=== PATIENT | female | born 1930 | race Caucasian/White ===

== ENCOUNTER → 2016-06-19 | Outpatient (CLI) | payer MEDICARE, OTHER ==
--- NOTE | 2016-06-19 13:54 | MRI ---
EXAM DESCRIPTION: Noncontrast MRI of the right shoulder CLINICAL HISTORY: Right shoulder pain with limited range of motion COMPARISON: None TECHNIQUE: Multiplanar, multi sequence MRI images of the right shoulder were obtained without intra-articular contrast. FINDINGS: Mild tendinosis of the supraspinatus more so than infraspinatus without high-grade partial or full-thickness tear. There is fluid seen within the subdeltoid/subacromial bursa which may represent bursitis. No full-thickness rotator cuff tear however. Otherwise, the rotator cuff is intact. Rotator cuff musculature demonstrates normal muscle bulk and signal characteristics. Long head of the biceps is well situated within the intertubercular groove. Biceps labral anchor is intact. Diffuse degeneration and blunting of the posterior and superior labrum. Moderate degenerative changes of the acromioclavicular joint. No fluid seen within the subdeltoid/subacromial bursa. Type 2 acromion is noted. Glenohumeral joint cartilage is intact. No large joint effusion or loose body. Marrow signal is otherwise unremarkable without fracture or subluxation. IMPRESSION: 1. Mild tendinosis of the supraspinatus and infraspinatus tendons without high-grade partial or full-thickness tear. There is fluid however within the subdeltoid/subacromial bursa which may represent bursitis. 2. Diffuse posterior and superior labral degeneration without labral cyst formation. 3. Moderate AC joint osteoarthrosis. Electronically signed by: Bret Davis MD 06/19/2016 1:52 PM CDT
== END | disposition home or self-care (01) ==
LOC: MRI 12:50
PROVIDERS: ATTEND Chiropractor Rehabilitation
DX: S43.429A Sprain of unspecified rotator cuff capsule, initial encounter (principal)

== ENCOUNTER → 2016-07-16 | Outpatient (CLI) | payer MEDICARE, OTHER ==
--- NOTE | 2016-07-16 08:43 | RAD ---
EXAM DESCRIPTION: Shoulder,Right 2 or More Views CLINICAL HISTORY: 86 years Female, PAIN IMPRESSION: 4 views of the right shoulder reveal considerable degenerative change of the acromioclavicular joint with inferiorly projecting osteophytes. The glenohumeral joint is unremarkable no evidence of dislocation or degenerative change. No fracture noted on today's study. Electronically signed by: Shay Jj MD 07/16/2016 8:42 AM CDT
== END | disposition home or self-care (01) ==
LOC: RAD 07:59
PROVIDERS: ATTEND Orthopaedic Surgery
DX: M25.511 Pain in right shoulder (principal)

== ENCOUNTER → 2016-08-27 | Outpatient (CLI) | payer MEDICARE, OTHER | END | disposition home or self-care (01) | LOC: GMAH 10:22 | PROVIDERS: ATTEND Family Medicine | DX: E78.4 Other hyperlipidemia (principal); E03.9 Hypothyroidism, unspecified ==

== ENCOUNTER → 2016-10-15 | Outpatient (CLI) | payer MEDICARE, OTHER | END | disposition home or self-care (01) | LOC: GMAH 11:45 | PROVIDERS: ATTEND Family Medicine | DX: E03.9 Hypothyroidism, unspecified (principal) ==

== ENCOUNTER → 2017-07-10 | Outpatient (CLI) | payer OTHER | END | disposition home or self-care (01) | LOC: GMAH 10:26 | PROVIDERS: ATTEND Family Medicine | DX: I10 Essential (primary) hypertension (principal) ==

== ENCOUNTER → 2017-09-03 | Outpatient (CLI) | payer OTHER | LOC: GMAH 11:26 | PROVIDERS: ATTEND Family Medicine | DX: E03.9 Hypothyroidism, unspecified (principal); E78.4 Other hyperlipidemia ==

== ENCOUNTER 2018-06-07 20:14 | Emergency (ER) | payer OTHER ==
--- NOTE | 2018-06-07 20:26 | ED.PDOC ---
History of Present Illness - General Chief Complaint: Head Injury Time Seen by Provider: 06/07/18 20:20 Source: patient - History of Present Illness Initial Comments: SHE FELL ON THE STREET AND NOW SUSTAINS A LAC TO THE RIGHT SUPRAORBITAL REGION. DENIES ANY LOC BUT SHE HAS AF AND ON ELIQUIS. SHE IS BROUGHT BY EMS AND HAD A RIGIID [place]. Occurred: just prior to arrival Injuries/Pain Location: head, face Reason for Fall: tripped - ON THE CURB Loss of Consciousness: no loss of consciousness Improving Factors: nothing Worsening Factors: nothing Associated Symptoms (Fall): denies symptoms Allergies/Adverse Reactions: Allergies Codeine Allergy (Verified 06/07/18 20:37) Penicillins Allergy (Verified 06/07/18 20:35) Review of Systems - Review of Systems Constitutional: States: no symptoms reported EENTM: States: no symptoms reported Respiratory: States: no symptoms reported Cardiology: States: no symptoms reported Gastrointestinal/Abdominal: States: no symptoms reported Genitourinary: States: no symptoms reported Musculoskeletal: States: no symptoms reported Skin: States: other - LACERATION TO THE RIGHT SUPRAORBITAL REGION Neurological: States: no symptoms reported Endocrine: States: no symptoms reported Hematologic/Lymphatic: States: no symptoms reported Past Medical History (General) - Patient Medical History Hx Cardiac Disorders: Yes Hx Diabetes: Yes Physical Exam - Physical Exam General Appearance: Alert, Well Developed, Well Groomed, Well Hydrated, Well Nourished Head Injury: ecchymosis, swelling, other - RIGHT SUPRAORBITAL AREA Eye Exam: bilateral normal, bilateral abnormal EOM ENT Exam: hearing grossly normal, no evidence of ENT injury, no dental injury Peripheral Pulses: radial,right: 2+, radial,left: 2+ Cardiovascular/Respiratory: irregularly irregular Gastrointestinal/Abdominal: normal bowel sounds, non tender, soft, no organomegaly Extremity Exam: no evidence of injury, normal range of motion, non-tender Skin Exam: normal color Progress - Progress Progress: 06/07/18 22:59 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 BP MAINTAINS GOOD. CT CERVICAL SPINE: NO ACAUTE PROCESS CT HEAD: NO ACAUTE BRAIN INJURY. FRACTURE OF THE FLOOR OF THE RIGHT ORBIT. BLOOD IN THE RIGHT MAXILLAR SINUS RIGHT SHOULDER: IMPACTED FRACTURE OF THE HUMERAL NECK-CLOSED \ - Results/Orders Results/Orders: CASE DISCUSSED WITH DR. LUND: WILL TRANSFER TO [place]- ACCEPTS THE CASE Procedures - Laceration/Wound Repair Right Face Wound Length (cm): 8 Wound's Depth, Shape: into muscle, irregular Wound Explored: no foreign body removed Irrigated w/ Saline (cc's): 100 Betadine Prep?: Yes Anesthesia: Lidocaine w/ Epi Volume Anesthetic (cc's): 10 Wound Repaired With: sutures Suture Size/Type: 5:0, nylon Number of Sutures: 7 Layer Closure?: Yes Deep Layer Suture Size/Type: 4:0, vicryl Sterile Dressing Applied?: Yes Splint Applied?: No Departure - Departure Clinical Impression: Bradycardia Closed head injury Qualifiers: Encounter type: initial encounter Qualified Code(s): S09.90XA - Unspecified injury of head, initial encounter Facial laceration Qualifiers: Encounter type: initial encounter Qualified Code(s): S01.81XA - Laceration without foreign body of other part of head, initial encounter Fracture of orbital floor Qualifiers: Encounter type: initial encounter Fracture type: closed Laterality: right Qualified Code(s): S02.31XA - Fracture of orbital floor, right side, initial encounter for closed fracture Humerus surgical neck fracture Qualifiers: Encounter type: initial encounter Fracture type: closed Fracture morphology: unspecified fracture morphology Fracture alignment: nondisplaced Laterality: right Qualified Code(s): S42.214A - Unspecified nondisplaced fracture of surgical neck of right humerus, initial encounter for closed fracture Time of Disposition: 23:07 Disposition: Transfer to Hospital Condition: Good Referrals: Louis Elliott MD [Primary Care Provider] - 1-2 Weeks Transfer to Outside Facility - Transfer Information Accepting Provider:: ROZINA LUND MD Accepting Facility: [facility] Reason for Transfer: required specialist not available
[2018-06-07] MEDS ORDERED: ONDANSETRON INJ 4 MG/2 ML VIAL IV ONE (21:24)
[2018-06-07] MEDS ORDERED: CHLORHEXIDINE GLUCONATE 4 % 15 ML UD TOP ONE (21:43)
[2018-06-07] MEDS ORDERED: LIDOCAINE 1% 50 ML VIAL INJ ONE (21:43)
[2018-06-07] MEDS ORDERED: LIDOCAINE 1% 2 ML VIAL INJ ONE (21:43)
[2018-06-07] MEDS ORDERED: LIDOCAINE 1% W/ EPINEPHRINE 20 ML VIAL INJ ONE (21:49)
--- NOTE | 2018-06-07 21:55 | CT ---
EXAM: Head CLINICAL INDICATION: 87-year-old female with head injury on Eliquis. COMPARISON: None. TECHNIQUE: CT brain without contrast. This exam was performed according to our departmental dose optimization program which includes use of automated exposure control, adjustment of the mA and/or kV according to patient size and/or use of iterative reconstruction technique. FINDINGS: Large RIGHT frontal subcutaneous hematoma. Evaluation through the skull base is limited for subtle hemorrhage secondary to motion streak artifact. Multifocal regions of patchy hypoattenuation are present in a subcortical and periventricular deep white matter distribution, nonspecific; however, most likely represent small vessel ischemic disease, age indeterminate. The ventricles, and sulci are enlarged compatible with underlying volume loss. The smith-white matter differentiation is preserved. There is no mass effect, midline shift, intra- or extra-axial fluid collection/acute hemorrhage. The osseous structures are unremarkable. The paranasal sinuses reveal mucosal thickening and air-fluid level within the maxillary sinuses bilaterally RIGHT greater than LEFT otherwise the remaining paranasal sinuses and mastoid air cells are clear. Air-fluid level within the RIGHT maxillary sinus reveals high density contents compatible with hemorrhage. Small depressed fracture of the medial aspect of the RIGHT orbital floor noted with approximately 3 mm of bony depression into the maxillary sinus cavity. There is no associated herniation of the retro-orbital fat or tethering of the rectus musculature. IMPRESSION: 1. No acute intracranial abnormalities. 2. Small medial RIGHT orbital floor fracture as detailed above. 3. Nonspecific white matter change most likely small vessel ischemic disease, age indeterminate. CT is insensitive for early evaluation of acute stroke. If there is clinical concern for acute ischemia, an MRI may be considered. 3. Large RIGHT frontal subcutaneous hematoma. Electronically signed by: Luly Ribeiro MD 06/07/2018 9:52 PM [facility]
--- NOTE | 2018-06-07 21:55 | RAD ---
EXAM DESCRIPTION: Shoulder,Right 2 or More Views CLINICAL HISTORY: 87 years Female, fall, pain COMPARISON: Right shoulder radiographs July 16, 2016. FINDINGS: There is an acute, comminuted fracture of the right humeral head/neck with mild displacement. No dislocation. Degenerative changes of the right acromioclavicular joint noted. Visualized right lung is clear. Surrounding soft tissues are grossly unremarkable. IMPRESSION: Acute fracture of the right humeral head/neck. Electronically signed by: Reji Smart MD 06/07/2018 9:52 PM [facility]
--- NOTE | 2018-06-07 22:01 | CT ---
EXAM: Cervical Spine CLINICAL INDICATION: 87-year-old female status post head injury. On Eliquis. TECHNIQUE: Cervical spine CT was performed without contrast. Multiplanar reformatted images were provided. This exam was performed according to our departmental dose optimization program which includes use of automated exposure control, adjustment of the mA and/or kV according to patient size and/or use of iterative reconstruction technique. COMPARISON: None. FINDINGS: There is normal alignment of the cervical spine without fracture or subluxation. The facets are normal in alignment bilaterally. The posterior elements including the spinous processes are intact. Straightening of the cervical spine which may be secondary to positioning for the examination. Morphology and attenuation of the vertebral bodies and intervertebral disc spaces is compatible with multilevel degenerative change. Loss of disk height present at the C5-6 and C6-7 vertebral levels. Posterior osseous spurring at C5-6 and C6-7 resulting in moderate to severe bilateral neuroforaminal narrowing. The pre-and paravertebral soft tissues are within normal limits. The airway is patent. Extraspinal imaging is within normal limits. IMPRESSION: 1. Straightening of the cervical spine which may be secondary to positioning for the examination versus spasm. 2. Degenerative change without fracture or acute subluxation. Electronically signed by: Luly Ribeiro MD 06/07/2018 9:58 PM CAMBERING MACHINE OPERATOR
[2018-06-07 23:51] VITALS: BP 158/66; TEMP 97.1; O2SAT 92
== END 2018-06-07 23:58 | disposition short-term general hospital (02) ==
LOC: ER 20:14
DX: S02.31XB Fracture of orbital floor, right side, initial encounter for open fracture (principal); S42.214A Unspecified nondisplaced fracture of surgical neck of right humerus, initial encounter for closed fracture; S09.90XA Unspecified injury of head, initial encounter; R00.1 Bradycardia, unspecified; I48.91 Unspecified atrial fibrillation; E11.9 Type 2 diabetes mellitus without complications; W10.1XXA Fall (on)(from) sidewalk curb, initial encounter; Y92.410 Unspecified street and highway as the place of occurrence of the external cause; Z88.5 Allergy status to narcotic agent; Z88.0 Allergy status to penicillin; Z79.01 Long term (current) use of anticoagulants
CPT/HCPCS: 36415; 70450; 72125; 73030; 80053; 82948; 85025; 93005; J2405

== ENCOUNTER → 2018-06-13 | Outpatient (CLI) | payer MEDICARE, OTHER ==
--- NOTE | 2018-06-13 09:41 | RAD ---
EXAM DESCRIPTION: Shoulder,Right 2 or More Views CLINICAL HISTORY: 88 years Female, S42.201A COMPARISON: June 07, 2018 FINDINGS: Again seen is a slightly displaced right humeral neck fracture with probable extension into the humeral head through the base of the greater tuberosity. The glenohumeral joint is anatomically aligned. No glenoid fracture. The right AC joint is unremarkable. IMPRESSION: Right humeral head and neck fracture as detailed above, unchanged from June 07, 2018. Electronically signed by: Gualberto Sweet MD 06/13/2018 9:37 AM [facility]
== END ==
LOC: RAD 08:09
PROVIDERS: ATTEND Orthopaedic Surgery
DX: S42.201A Unspecified fracture of upper end of right humerus, initial encounter for closed fracture (principal)

== ENCOUNTER → 2018-06-26 | Outpatient (CLI) | payer OTHER ==
--- NOTE | 2018-06-27 08:07 | RAD ---
EXAM: Shoulder,Right 2 or More Views CLINICAL HISTORY: S42.201D COMPARISON STUDY: June 13, 2018 TECHNICAL: Internal and external rotation x-rays of the right shoulder FINDINGS: There is a transverse fracture through the right proximal humeral metaphysis. The fracture fragments are minimally displaced and unchanged. Periosteal new bone formation has begun at the fracture is not yet fused. There is no dislocation of the glenoid. A fracture of the greater tuberosity is unchanged. IMPRESSION: Healing, mildly displaced right proximal humeral metaphysis fracture. Electronically signed by: Cameron Gibbs MD 06/27/2018 8:04 AM CDT
== END ==
LOC: RAD 08:55
PROVIDERS: ATTEND Orthopaedic Surgery
DX: S42.201D Unspecified fracture of upper end of right humerus, subsequent encounter for fracture with routine healing (principal)

== ENCOUNTER → 2018-07-10 | Outpatient (CLI) | payer OTHER ==
--- NOTE | 2018-07-10 16:09 | RAD ---
EXAM: Shoulder,Right 2 or More Views CLINICAL HISTORY: S42.201D COMPARISON STUDY: June 26, 2018 TECHNICAL: Internal and external rotation images of the right shoulder FINDINGS: There is ongoing healing at the proximal humeral fracture. Mild displacement is unchanged. There is no dislocation. The remainder the examination is stable. IMPRESSION: Ongoing healing of the right proximal humerus fracture. Electronically signed by: Cameron Gibbs MD 07/10/2018 4:06 PM CDT
== END ==
LOC: RAD 08:42
PROVIDERS: ATTEND Orthopaedic Surgery
DX: S42.201D Unspecified fracture of upper end of right humerus, subsequent encounter for fracture with routine healing (principal)

== ENCOUNTER → 2018-07-31 | Outpatient (CLI) | payer OTHER ==
--- NOTE | 2018-07-31 16:36 | RAD ---
EXAM DESCRIPTION: Shoulder,Right 2 or More Views CLINICAL HISTORY: S42.201D COMPARISON: 10 July 2018 TECHNIQUE: 2 views right FINDINGS: A fracture of the surgical neck of the right proximal humerus is observed. There is slight medial angulation of the distal fracture fragment. No evidence of a dislocation is seen. Mild degenerative changes are observed in the acromio clavicular joint. Alignment is not significantly changed when comparison is made to the previous exam. Some callus formation is observed at the fracture site. IMPRESSION: A right humeral fracture is observed unchanged the previous exam. Callus formation is observed at the fracture site. Electronically signed by: Isidro Arroyo MD 07/31/2018 4:34 PM CDT
== END ==
LOC: RAD 09:21
PROVIDERS: ATTEND Orthopaedic Surgery
DX: S42.201D Unspecified fracture of upper end of right humerus, subsequent encounter for fracture with routine healing (principal)

== ENCOUNTER → 2018-12-12 | Outpatient (CLI) | payer OTHER ==
--- NOTE | 2018-12-12 09:21 | RAD ---
EXAM DESCRIPTION: Shoulder,Right four x-ray Views CLINICAL HISTORY: UNSPEC FRACTURE OF UPPER END OF RIGHT HUMEROUS COMPARISON: Previous right shoulder x-ray September 11, 2018, earlier study June 13, 2018 TECHNIQUE: Four views of the right shoulder. FINDINGS: There is adequate internal and external rotation. Normal glenohumeral alignment on transaxillary and transscapular Y views. Healing fracture is noted with callus formation and decreasing visibility of the fracture line. Slight impaction is noted and on the external rotation view, the humeral head is rotated medially. IMPRESSION: Healing fracture of the surgical neck of the proximal right humerus. Electronically signed by: Mike Howell MD 12/12/2018 9:19 AM CDT
== END ==
LOC: RAD 08:41
PROVIDERS: ATTEND Orthopaedic Surgery
DX: S42.201D Unspecified fracture of upper end of right humerus, subsequent encounter for fracture with routine healing (principal)

== ENCOUNTER → 2019-11-06 | Outpatient (CLI) | payer OTHER ==
--- NOTE | 2019-11-09 10:10 | US ---
EXAM DESCRIPTION: Venous,Lower Extremity LT CLINICAL HISTORY: 89 years Female, LOCALIZED EDEMMA COMPARISON: 05/25/2010 TECHNIQUE: Multiple grayscale, color flow, and spectral Doppler images of the left lower extremity veins obtained. FINDINGS: Patent without thrombosis through the visualized lower extremity veins. Mild subcutaneous edema in the distal lower extremity. IMPRESSION: 1. Negative ultrasound for deep vein thrombosis. 2. Mild calf edema Electronically signed by: Camilo Marion MD 11/09/2019 10:08 AM CDT
--- NOTE | 2019-11-09 10:11 | US ---
EXAM DESCRIPTION: Venous,Lower Extremity RT CLINICAL HISTORY: 89 years Female, LOCALIZED EDEMA COMPARISON: 05/25/2010. TECHNIQUE: Multiple grayscale, color flow, and spectral Doppler images of the right lower extremity veins obtained. FINDINGS: Patent without thrombosis through the visualized lower extremity veins. Mild subcutaneous edema in the distal lower extremity. IMPRESSION: 1. Negative ultrasound for deep vein thrombosis. 2. Mild calf edema. Electronically signed by: Camilo Marion MD 11/09/2019 10:09 AM CDT
== END ==
LOC: US 13:20
PROVIDERS: ATTEND Family Medicine
DX: R60.0 Localized edema (principal)

== ENCOUNTER → 2020-04-18 | Outpatient (CLI) | payer SELFPAY | LOC: GMA MATASK 10:43 | PROVIDERS: ATTEND Family Medicine | DX: I10 Essential (primary) hypertension (principal); E11.65 Type 2 diabetes mellitus with hyperglycemia; E03.9 Hypothyroidism, unspecified ==

== ENCOUNTER → 2020-05-12 | Outpatient (CLI) | payer OTHER ==
--- NOTE | 2020-05-12 16:17 | US ---
EXAM DESCRIPTION: Venous,Lower Extremity LT: ULTRASOUND. CLINICAL HISTORY: LOC EDEMA COMPARISON: None Available. TECHNIQUE: Rashid-scale and doppler sonographic evaluation of the deep venous system of the left lower extremity. FINDINGS: Doppler evaluation shows normal color flow and normal phasicity and augmentation of the left common femoral vein, left femoral vein, popliteal vein, left greater saphenous vein, junction with the CFV. Also normal color flow and normal phasicity and augmentation of the left peroneal, and posterior tibial vein. The left lower extremity deep veins were completely compressible; normal occlusion with transducer pressure. Rashid-scale survey showed no echogenic thrombus within these veins. IMPRESSION: 1. Duplex ultrasound evaluation of the left lower extremity deep venous system showing no evidence of thrombosis. Electronically signed by: Jared Beavers MD 05/12/2020 4:15 PM [facility]
--- NOTE | 2020-05-13 13:18 | US ---
EXAM DESCRIPTION: Extremity,Lower LT Arteries: Ultrasound. CLINICAL HISTORY: PVD COMPARISON: None. TECHNIQUE: Doppler evaluation of the bilateral lower extremity arterial flow waveforms and velocities. 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 Monophasic in the left SFA proximal to distal and left peroneal artery with moderate velocity. Monophasic in the left popliteal and left DPA with decreased velocity. No flow in the left posterior tibial artery.. . Comments: Patient has possible first or second degree heart block. 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 Low velocity in the left popliteal and D PA vessels. No flow on the left posterior tibial artery.. Electronically signed by: Jared Beavers MD 05/13/2020 1:17 PM TRAFFIC RATE ANALYST
== END ==
LOC: US 12:38
PROVIDERS: ATTEND Family Medicine
DX: R60.0 Localized edema (principal); I70.202 Unspecified atherosclerosis of native arteries of extremities, left leg